=== PATIENT | male | born 1940 | race African-American/Black ===

== ENCOUNTER 2017-10-29 11:53 | Emergency (ER) | payer MEDICARE ==
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
== END 2017-10-29 13:42 | disposition home or self-care (01) ==
LOC: ERS 11:53
DX: J68.0 Bronchitis and pneumonitis due to chemicals, gases, fumes and vapors (principal); E11.9 Type 2 diabetes mellitus without complications; E78.5 Hyperlipidemia, unspecified; I10 Essential (primary) hypertension; F17.210 Nicotine dependence, cigarettes, uncomplicated; Z79.899 Other long term (current) drug therapy
CPT/HCPCS: 71020; 99406